=== PATIENT | male | born 1945 | race Hispanic/Latino ===

== ENCOUNTER 2016-07-26 15:41 | Outpatient (CLI) | payer MEDICARE ==
--- NOTE | 2016-07-26 16:44 | Cat Scan Report ---
CT chest with contrast: One nodule. Transverse images are obtained through the chest into the upper abdomen. Coronal and sagittal 2-D reformatted images are included. There is a large calcified subcarinal lymph node and a small calcified posterior tracheal lymph node. No noncalcified hilar or mediastinal adenopathy identified. In the left upper lobe there is a 7 mm noncalcified small stellate-appearing nodule. A round, smooth noncalcified 3 mm nodule is identified peripherally in the left lower lobe. There is a sharply defined, smooth 4.6 mm noncalcified nodule also peripherally in the left lower lobe. There are 4 calcified nodules noted posteriorly in the left lower lobe. Pulmonary findings are otherwise unremarkable. 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 Impressions: 1. Old granulomatous infection involving the left lower lobe and spleen. 2. Several noncalcified nodules. The left upper lobe nodule is most suspicious for a possible non-granulomatous nodule. The above findings have been discussed with the patient. Additional evaluation to be considered.
== END 2016-07-26 15:42 | disposition home or self-care (01) ==
LOC: CT 15:41
PROVIDERS: ATTEND Otolaryngology
DX: R91.1 Solitary pulmonary nodule (principal); M47.894 Other spondylosis, thoracic region
CPT/HCPCS: 71260; Q9967